=== PATIENT | female | born 2000 | race African-American/Black ===

== ENCOUNTER 2025-01-04 15:45 | Emergency (ER) | payer MEDICAID ==
[~2025-01-04] VITALS: Ht 157.5 cm; Wt 70.8 kg
[2025-01-04] MEDS ORDERED: predniSONE 50 MG TABLET ONE (16:28)
[2025-01-04] MEDS ORDERED: FAMOTIDINE 20 MG TABLET ONE (16:28)
[2025-01-04] MEDS ORDERED: diphenhydrAMINE 50 MG CAPSULE ONE (16:29)
[2025-01-04] MEDS ORDERED: ONDANSETRON ODT 4 MG TAB.RAPDIS ONE (16:29)
[2025-01-04] MEDS: diphenhydrAMINE 50 MG CAPSULE PO ONE (16:44)
[2025-01-04] MEDS: ONDANSETRON ODT 4 MG TAB.RAPDIS SL ONE (16:44)
[2025-01-04] MEDS: predniSONE 50 MG TABLET PO ONE (16:44)
[2025-01-04] MEDS: FAMOTIDINE 20 MG TABLET PO ONE (16:44)
[2025-01-04] MEDS ORDERED: CETI-194 PO (17:44)
[2025-01-04] MEDS ORDERED: PRED50TA PO (17:44)
[2025-01-04 18:05] VITALS: BP 134/89; TEMP 98; O2SAT 99
== END 2025-01-04 17:50 | disposition home or self-care (01) ==
LOC: ER 15:45
DX: R11.0 Nausea (principal); T78.1XXA Other adverse food reactions, not elsewhere classified, initial encounter; Z79.52 Long term (current) use of systemic steroids; X58.XXXA Exposure to other specified factors, initial encounter
CPT/HCPCS: 99284; Q0163; J7512; A4606; A4663; Q0162